=== PATIENT | male | born 2000 | race Caucasian/White ===

== ENCOUNTER 2019-06-25 10:49 | Outpatient (RCR) | payer BC | END 2019-07-03 | disposition home or self-care (01) | LOC: WCC 10:49 | DX: L98.492 Non-pressure chronic ulcer of skin of other sites with fat layer exposed (principal); T81.31XA Disruption of external operation (surgical) wound, not elsewhere classified, initial encounter; L05.91 Pilonidal cyst without abscess; X58.XXXA Exposure to other specified factors, initial encounter | CPT/HCPCS: 11042 ==

== ENCOUNTER 2019-07-09 09:32 | Outpatient (RCR) | payer BC | END 2019-08-02 | disposition home or self-care (01) | LOC: WCC 09:32 | DX: L98.492 Non-pressure chronic ulcer of skin of other sites with fat layer exposed (principal); T81.31XA Disruption of external operation (surgical) wound, not elsewhere classified, initial encounter; L05.91 Pilonidal cyst without abscess; X58.XXXA Exposure to other specified factors, initial encounter; Y92.9 Unspecified place or not applicable | CPT/HCPCS: 11042 ==

== ENCOUNTER 2019-08-13 09:19 | Outpatient (RCR) | payer BC ==
[~2019-08-13] VITALS: Ht 172.7 cm; Wt 72.6 kg
== END 2019-09-02 | disposition home or self-care (01) ==
LOC: WCC 09:19
DX: L98.492 Non-pressure chronic ulcer of skin of other sites with fat layer exposed (principal); T81.31XA Disruption of external operation (surgical) wound, not elsewhere classified, initial encounter; L05.91 Pilonidal cyst without abscess; X58.XXXA Exposure to other specified factors, initial encounter; Y92.9 Unspecified place or not applicable
CPT/HCPCS: 11042

== ENCOUNTER 2019-09-03 09:24 | Outpatient (RCR) | payer BC ==
[~2019-09-03] VITALS: Ht 172.7 cm; Wt 72.6 kg
== END 2019-10-02 | disposition home or self-care (01) ==
LOC: WCC 09:24
DX: L98.492 Non-pressure chronic ulcer of skin of other sites with fat layer exposed (principal); L98.412 Non-pressure chronic ulcer of buttock with fat layer exposed; T81.31XA Disruption of external operation (surgical) wound, not elsewhere classified, initial encounter; L05.91 Pilonidal cyst without abscess; X58.XXXA Exposure to other specified factors, initial encounter; Y92.9 Unspecified place or not applicable
CPT/HCPCS: 11042; 17250; 87070; 87181; 87205

== ENCOUNTER 2019-10-03 08:26 | Outpatient (RCR) | payer BC | END 2019-11-02 | disposition home or self-care (01) | LOC: WCC 08:26 | DX: L98.492 Non-pressure chronic ulcer of skin of other sites with fat layer exposed (principal); T81.31XA Disruption of external operation (surgical) wound, not elsewhere classified, initial encounter; L05.91 Pilonidal cyst without abscess; X58.XXXA Exposure to other specified factors, initial encounter; Y92.9 Unspecified place or not applicable; L98.412 Non-pressure chronic ulcer of buttock with fat layer exposed ==